=== PATIENT | male | born 1965 | race Caucasian/White ===

== ENCOUNTER 2017-04-20 07:52 | Day surgery (SDC) | payer OTHER ==
[2017-04-17 08:35] VITALS: BMI 30.6
[2017-04-20] MEDS: LACTATED RINGERS 1,000 ML IV SCH ×2 (08:11→08:25)
[2017-04-20] MEDS ORDERED: MIDAZOLAM 2 MG/2 ML VIAL ONE (08:25)
[2017-04-20] MEDS ORDERED: LIDOCAINE 1% INJ 10MG/ML (20 ML MDV) ONE (08:25)
[2017-04-20] MEDS ORDERED: PROPOFOL 10 MG/ML 20 ML VIAL IV ONE (08:25)
[2017-04-20 08:51] VITALS: RESP 16
--- NOTE | 2017-04-20 08:54 | P.PCN ---
Date of Procedure: 04/20/17 Preoperative Diagnosis: Postoperative Diagnosis: Procedure(s) Performed: Procedure: Total colonoscopy. Preoperative diagnosis: Screening for neoplasia. Postoperative diagnosis: Exam within normal limits. Preparation: HalfLytely prep. Sedation: Was provided by anesthesia. Brief clinical history: The patient is a 52-year-old male who is referred for this evaluation for screening for neoplasia. He has family history of colon cancer in his biologic father. The patient had a prior colonoscopy more than 15 years ago and he believes he had polyps removed back then. At this time, he has no abdominal complaints, bleeding or anemia. Procedure: With the patient on his left lateral decubitus position and after informed consent and adequate sedation, the perianal area was inspected and it did not show any fissures or fistulas. There were no masses felt on digital rectal examination. The Olympus CFQ 160L video colonoscope was then inserted in the rectum in the usual fashion and advanced to the cecum. The mucosa appeared healthy. No polyps or tumors were seen or any obvious diverticular disease. I retroflexed the endoscope in the rectum before the endoscope was withdrawn. Prominent anal papillae and low-grade internal hemorrhoids were noted but there was no bleeding or other pathology. The patient tolerated the procedure well. Plan: The patient was reassured. Discussed dietary measures and local care for hemorrhoids. She will follow-up with you as planned and I recommended a repeat exam in 5 years because of his family history. Implants: Indications for Procedure: Operative Findings: Description of Procedure:
[2017-04-20 09:13] VITALS: BP 136/77; PULSE 61
== END 2017-04-20 09:18 | disposition home or self-care (01) ==
LOC: ORWHC2ENDO 07:52
DX: Z12.11 Encounter for screening for malignant neoplasm of colon (principal); Z80.0 Family history of malignant neoplasm of digestive organs; Z86.010 Personal history of colon polyps; K64.8 Other hemorrhoids; K62.89 Other specified diseases of anus and rectum; Z79.899 Other long term (current) drug therapy; Z79.891 Long term (current) use of opiate analgesic
CPT/HCPCS: J2250; J2001; J2704; G0121